=== PATIENT | male | born 1970 | race Caucasian/White ===

== ENCOUNTER → 2017-05-16 | Outpatient (CLI) | payer OTHER | LOC: FIMAGING 09:02 | PROVIDERS: ATTEND Orthopaedic Surgery | DX: Z01.818 Encounter for other preprocedural examination (principal); M17.12 Unilateral primary osteoarthritis, left knee ==

== ENCOUNTER 2017-05-18 06:38 | Observation (INO) | payer OTHER ==
[~2017-05-18 06:38] MED LIST: ROPIVACAINE 0.2% 80 MG, EPINEPHrine 0.2 MG, KETOROLAC TROMETHAMINE 30 MG in SYRINGE 0 ML IU ONE; TRANEXAMIC ACID 3,000 MG in NS (SYRINGE) 50 ML IRR ONE
--- NOTE | 2017-05-18 07:08 | PDHPUP ---
History & Physical Update H&P update statement: This history and physical update is based on an assessment of the patient which was completed after admission or registration (within 24 hours), but prior to the surgery/procedure. H&P update: H&P reviewed & patient examined, no change in patient's condition since H&P completed
[2017-05-18] MEDS ORDERED: DEXAMETHASONE 4 MG/ML VIAL IVP ONE (07:24)
[2017-05-18] MEDS ORDERED: ACETAMINOPHEN 325 MG TAB PO ONE (07:24)
[2017-05-18] MEDS ORDERED: ceFAZolin 2 GM/SWFI 2 GM/20 ML SYR IVP ONE (07:24)
[2017-05-18] MEDS ORDERED: FAMOTIDINE 20 MG TAB PO ONE (07:24)
[2017-05-18] MEDS ORDERED: LR 1,000 ML IV ONE (07:25)
[2017-05-18] MEDS ORDERED: LIDOCAINE 1% 2 ML INJ ID PRN (07:25)
[2017-05-18] MEDS ORDERED: Propylene Glycol/Peg 400 [Systane 0.3-0.4% Eye Drops] 1 DROP OP PRN (07:26)
[2017-05-18] MEDS ORDERED: VANCOMYCIN 1 GM VIAL ONE (08:36)
[2017-05-18] MEDS ORDERED: TRANEXAMIC ACID 3,000 MG/50 ML BAG IRR ONE (08:36)
[2017-05-18] MEDS ORDERED: LIDOCAINE 2% 5 ML SDV ONE (08:59)
[2017-05-18] MEDS ORDERED: ROPIVACAINE HCL 150 MG/30 ML INJ ONE (08:59)
[2017-05-18] MEDS ORDERED: PROPOFOL/EMULSION 500 MG/50 ML BOTTLE IV ONE (08:59)
[2017-05-18] MEDS ORDERED: MIDAZOLAM 2 MG/2 ML VIAL ONE (08:59)
[2017-05-18] MEDS ORDERED: LR 500 ML IV PRN (09:16)
[2017-05-18] MEDS ORDERED: METOCLOPRAMIDE 10 MG/2 ML VIAL IVP PRN ×2 (09:16→10:22)
[2017-05-18] MEDS ORDERED: ALBUTEROL 3 ML DEYVIAL IH PRN (09:16)
[2017-05-18] MEDS ORDERED: NALOXONE HCL 0.4 MG/ML INJ IVP PRN (09:16)
[2017-05-18] MEDS ORDERED: MEPERIDINE 25 MG/ML SYR IVP PRN (09:16)
[2017-05-18] MEDS ORDERED: DEXAMETHASONE 4 MG/ML VIAL IVP PRN (09:16)
[2017-05-18] MEDS ORDERED: ONDANSETRON 4 MG/2 ML VIAL IVP PRN ×2 (09:16→10:22)
[2017-05-18] MEDS ORDERED: fentaNYL 100 MCG/2 ML INJ IVP PRN (09:16)
--- NOTE | 2017-05-18 09:16 | PDANEPAE ---
ANE Past Medical History - Cardiovascular History Hx Hypertension: No Hx Arrhythmias: No Hx Chest Pain: No Hx Coronary Artery / Peripheral Vascular Disease: No Hx CHF / Valvular Disease: No Hx Palpitations: No - Pulmonary History Hx COPD: No Hx Asthma/Reactive Airway Disease: No Hx Recent Upper Respiratory Infection: No Hx Oxygen in Use at Home: No Hx Sleep Apnea: No Sleep Apnea Screening Result - Last Documented: Negative - Neurologic History Hx Cerebrovascular Accident: No Hx Seizures: No Hx Dementia: No - Endocrine History Hx Diabetes: No - Renal History Hx Renal Disorders: No - Liver History Hx Hepatic Disorders: No - Neurological & Psychiatric Hx Hx Neurological and Psychiatric Disorders: No - Cancer History Hx Cancer: No - Congenital Disorder History Hx Congenital Disorders: No - GI History Hx Gastrointestinal Disorders: No - Other Health History Other Health History: none - Chronic Pain History Chronic Pain: Yes (left knee) - Surgical History Prior Surgeries: knee surgeries- scopes. hernia repair 1979 ? tonsillectomy as child ANE Review of Systems Review of Systems: - Exercise capacity METS (RN): 4 METS ANE Patient History - Allergies Allergies/Adverse Reactions: levofloxacin [From Levaquin] Allergy (Verified 04/27/17 10:04) joints started hurting after a couple pills - Home Medications Home Medications: Meloxicam 15 mg PO DAILY 04/23/17 [Last Taken 04/27/17] Naproxen Sodium [Aleve 220 MG (*)] 440 mg PO BID PRN 04/23/17 [Last Taken ] Propylene Glycol/Peg 400 [Systane 0.3-0.4% Eye Drops] 1 drop OP QID PRN [Last Taken 05/16/17] - Smoking Hx Smoking Status: Never smoked - Family Anes Hx Family Hx Anesthesia Complications: none ANE Labs/Vital Signs - Vital Signs Blood Pressure: 105/68 Heart Rate: 52 Respiratory Rate: 16 O2 Sat (%): 95 Height: 177.8 cm Weight: 73.936 kg ANE Physical Exam - Airway Neck exam: FROM Mallampati Score: Class 1 Mouth exam: normal dental/mouth exam - Pulmonary Pulmonary: no respiratory distress - Cardiovascular Cardiovascular: regular rate and rhythym, no murmur, rub, or gallop - ASA Status ASA Status: I ANE Anesthesia Plan Anesthesia Plan: spinal Regional Anesthesia: adductor canal FNB
[2017-05-18] MEDS ORDERED: POLYETHYLENE GLYCOL 3350 17 GM PKT PO PRN (10:22)
[2017-05-18] MEDS ORDERED: TEMAZEPAM 15 MG CAP PO PRN (10:22)
[2017-05-18] MEDS ORDERED: CYCLOBENZAPRINE 10 MG TAB PO PRN (10:22)
[2017-05-18] MEDS ORDERED: oxyCODONE IR 5 MG TAB PO PRN (10:22)
[2017-05-18] MEDS ORDERED: PROMETHAZINE HCL 25 MG SUPPR PR PRN (10:22)
[2017-05-18] MEDS ORDERED: diphenhydrAMINE 25 MG CAP PO PRN (10:22)
[2017-05-18] MEDS ORDERED: LACTULOSE 20 GM/30 ML UDCUP PO PRN (10:22)
[2017-05-18] MEDS ORDERED: PROMETHAZINE HCL 25 MG/ML INJ IVP PRN (10:22)
[2017-05-18] MEDS ORDERED: ONDANSETRON DISINTEGRATING 4 MG TAB PO PRN (10:22)
[2017-05-18] MEDS ORDERED: DIPHENOXYLATE/ATROPINE LOMOTIL 1 TAB PO PRN (10:22)
[2017-05-18] MEDS ORDERED: MAGNESIUM HYDROXIDE 30 ML UDCUP PO PRN (10:22)
[2017-05-18] MEDS ORDERED: BISACODYL 10 MG SUPP PR PRN (10:22)
--- NOTE | 2017-05-18 10:22 | POSTOPPROG ---
Post Op Note Date of Operation: 05/18/17 Surgeon: Marilee Tian Outreach Counselor: yulia tian Anesthesiologist: dr. trevizo Anesthesia: Spinal, Other (Specify) (adductor canal block) Pre-op Diagnosis: left knee OA Post-op Diagnosis: same Indication: left knee pain due to OA that failed conservative measures Procedure: L med MPL partial knee arthroplasty robot assisted Findings: severe medial knee OA Inf/Abcess present in the surg proc area at time of surgery?: No EBL: 50-100
[2017-05-18] MEDS ORDERED: LR 1,000 ML IV SCH (10:30)
--- NOTE | 2017-05-18 10:49 | POSTANESTH ---
Post Anesthetic Evaluation Cardiovascular Status: Normal, Stable Respiratory Status: Normal, Stable Level of Consciousness/Mental Status: Can Participate in Eval Pain Control: Adequate, Prn Tx Ordered Nausea/Vomiting Control: Adequate, Prn Tx Ordered Complications Possibly Related to Anesthesia: None Noted
[2017-05-18] MEDS: ACETAMINOPHEN 325 MG TAB PO SCH ×2 (11:53→17:57)
[2017-05-18] MEDS: ceFAZolin 2 GM/SWFI 2 GM/20 ML SYR IVP SCH (16:56)
[2017-05-18] MEDS: FAMOTIDINE 20 MG TAB PO SCH (22:00)
[2017-05-18] MEDS: SENNOSIDES/DOCUSATE SODIUM TAB PO SCH (22:00)
[2017-05-18] MEDS: ASPIRIN 81 MG CHEWABLE TAB PO SCH (22:00)
--- NOTE | 2017-05-18 22:02 | GOP ---
[f rep st] OPERATIVE REPORT DATE OF OPERATION: 05/18/2017 SURGEON: Anaid Layne MD AIR [place]: ROMAIN Chu ANESTHESIA: Spinal. PREOPERATIVE DIAGNOSIS: Left knee osteoarthritis. POSTOPERATIVE DIAGNOSIS: Left knee osteoarthritis. PROCEDURE PERFORMED: Left medial compartment partial knee replacement with computer navigation and r obotic assist. FINDINGS: ESTIMATED BLOOD LOSS: 30 cc. INDICATIONS: This is a 47-year-old male with progressive pain of the left knee unresponsive to conse rvative care. Risks and benefits of surgical intervention were explained in detail. DESCRIPTION OF PROCEDURE: The patient was brought to the operating room and placed on the table in s upine position. Spinal anesthesia was induced without difficulty. A pneumatic tourniquet was applie d about the left proximal thigh and the leg was prepped and draped in sterile fashion. Attention was turned first to the distal aspect of the left femur. At 3 cm proximal to the lateral rise of the fe mur, 2 percutaneous half pins were placed for fixation of the femoral array. In a similar fashion, 2 pins were placed anterolateral on the tibia for fixation of the tibial array. External land marking and registration of the hip center was performed without difficulty. After exsanguination by elevation, the tourniquet was inflated to 250 mmHg. Incision was made from the tibial tuberosity to the superior pole of the patella. Dissection was car ried out through the subcutaneous tissue to the deep fascia using Bovie electrocautery for hemostasis . Medial parapatellar arthrotomy was carried out to the superior pole of the patella. The medial co llateral ligament was elevated and the infrapatellar fat pad was resected. Internal femoral and tibi al registration was carried out without difficulty and the femoral and tibial checkpoints were placed and verified for accuracy. Attention was turned to the femur. The foot print for the size 5 femoral component was cut with the 6 mm bur using the [employer] robotic system and verified for accuracy against the CT based plan. The hole was cut for the femoral post. In a similar fashion, the 6 mm bur was used to cut the foot print for t he size 5 tibial component using the [employer] system and verified for accuracy against the CT based plan. Attention was turned to the posterior aspect of the knee and remnants of the medial meniscus were exc ised. The posterior capsule was injected with ropivacaine, epinephrine and Toradol. Trial reduction was carried out and there was excellent range of motion, alignment and stability using the size 5 fe moral component and the size 5 tibial component, and 5 x 8 mm polyethylene. All trials were then removed. The joint was thoroughly irrigated and carefully dried. One package o f cement and 1 gram of vancomycin were mixed in the vacuum mixer and placed on the fixation surfaces of all components. The components were implanted and all excess cement was thoroughly removed. Impla nt placement was verified against the CT view plan and found to be excellent. The tourniquet was deflated and all bleeders were coagulated. The wound was thoroughly irrigated and closed using interrupted sutures of 2-0 Vicryl for the joint capsule. The subcu was closed with 3-0 Vicryl and the skin with 4-0 Monocryl. Dermabond and Steri-Strips were applied, followed by a compr essive dressing. The patient was then moved from the operating room to the recovery room in good con dition, having tolerated the procedure well. CASE CLASSIFICATION: Clean. /[id number]/MODL
[2017-05-18 23:48] VITALS: RESP 16
[2017-05-19] MEDS: ACETAMINOPHEN 325 MG TAB PO SCH ×3 (00:23→12:06)
[2017-05-19] MEDS: ceFAZolin 2 GM/SWFI 2 GM/20 ML SYR IVP SCH (00:24)
[2017-05-19 08:28] VITALS: BP 112/71; PULSE 58; TEMP 97.5; O2SAT 88
[2017-05-19] MEDS: SENNOSIDES/DOCUSATE SODIUM TAB PO SCH (08:43)
[2017-05-19] MEDS: ASPIRIN 81 MG CHEWABLE TAB PO SCH (08:44)
[2017-05-19] MEDS: FAMOTIDINE 20 MG TAB PO SCH (08:44)
--- NOTE | 2017-05-19 15:21 | SOAPPROG ---
SOAP Progress Note Assessment/Plan: Assessment: patient is doing well POD 1 s/p L med MPL pain is well controlled DVT ppx: recommend aspirin 81 mg BID d/c planning: d/c to home today Plan: 05/19/17 15:20 05/19/17 15:20 Subjective: Jhonatan is doing well, mild pain, denies SOB, chest pain and N/V. Objective: Vital Signs Temp Pulse Resp BP Pulse Ox 36.4 C 58 L 16 112/71 88 L 05/19/17 08:00 05/19/17 08:00 05/19/17 08:00 05/19/17 08:00 05/19/17 08:00 Laboratory Results 05/19/17 04:51 05/18/17 05/19/17 05/20/17 05:59 05:59 05:59 Intake Total 1200 Output Total 1095 Balance 105 LLE: incision dressing is clean and dry, NVI< +pf/df ICD10 Worksheet Patient Problems: Problems Problem Status Onset Primary localized osteoarthritis of left knee Acute
== END 2017-05-19 14:11 | disposition home or self-care (01) ==
LOC: INTOOBSV 06:38 → F3N 06:38
PROVIDERS: ADMIT Orthopaedic Surgery; ATTEND Orthopaedic Surgery
DX: M17.12 Unilateral primary osteoarthritis, left knee (principal)
CPT/HCPCS: 27446; 73560; 97116; 97161; 97165; 97530; G0378; C1713; J0171; J0690; J1100; J1885; J2250; J2704; J2795; J3370